=== PATIENT | female | born 1945 | race Hispanic/Latino ===

== ENCOUNTER → 2017-05-21 | Outpatient (CLI) | payer MEDICARE ==
--- NOTE | 2017-05-21 13:41 | Diagnostic Imaging Report ---
PROCEDURE:RIBS UNILAT W/CXR TECHNIQUE: INDICATION: COMPARISON:None. FINDINGS: Lungs are well-inflated. Linear opacities in the lung bases, likely atelectasis or scarring. No pleural effusions or pneumothorax. Cardiomediastinal silhouette is unremarkable. No pleural effusions or pneumothorax. No free air under the diaphragm. Soft tissues are unremarkable. Minimally displaced left 6th rib fracture anterolaterally. CONCLUSION: Minimally displaced left 6th rib fracture anterolaterally. Dictated by: Dimitri Lopez M.D. on 05/21/2017 at 13:42 Electronically approved by: Dimitri Lopez M.D. on 05/21/2017 at 13:42
== END ==
LOC: RAD 09:32
PROVIDERS: ATTEND Family Medicine
DX: R07.89 Other chest pain (principal)
CPT/HCPCS: 71101

== ENCOUNTER 2019-08-21 19:41 | Emergency (ER) | payer MEDICARE, OTHER ==
[~2019-08-21] VITALS: Ht 157.5 cm; Wt 127.0 kg
[2019-08-21] MEDS ORDERED: SODIUM CHLORIDE 0.9% 1000ML 1,000 ML IV STA (20:02)
[2019-08-21] MEDS ORDERED: FAMOTIDINE 20 MG/2 ML VIAL IV ONE ×2 (20:15→20:37)
[2019-08-21] MEDS ORDERED: ONDANSETRON HCL INJ 2MG/ML 2ML 2 MG/ML VIAL IV ONE (20:15)
[2019-08-21] MEDS ORDERED: MAALOX MAXIMUM355 ML PO (20:16)
[2019-08-21] MEDS ORDERED: ZOFRAN4 MG SL (20:16)
[2019-08-21] MEDS ORDERED: OMEPRAZOLE40 MG PO (20:16)
--- NOTE | 2019-08-21 20:16 | Emergency Department Note ---
History of Present Illnes History of Present Illness Chief Complaint: Abdominal Complaints History of Present Illness This is a 73 year old female obese c/o epigatric pain for 1 week no n/v/d no f/c. Just want to "check it out". Arrival Mode: Car History limited by: language barrier Director Of Business Continuity Required: Yes (Jalen her nurse speaks American with her) Severity: mild Onset quality: sudden Duration (how long): week(s) (1) Chronicity: new Relieving factors: none Exacerbating factors: none Associated symptoms: Reports denies other symptoms Treatments prior to arrival: none Previous service: medications given Past Medical/Family History Physician Review I have reviewed the patient's past medical and family history. Any updates have been documented here. Past Medical History Recent Fever: No Clinical Suspicion of Infectio: No New/Unexplained Change in Ment: No Social History Smoking Cessation: Never Smoker Counseling Performed: No Any Illegal Drug Use: No Family History Family history of heart diseas: No Other Any Pre-Existing Lines (PICC,: No Is patient up to date on immun: No Review of Systems Review of Systems Constitutional: Reports no symptoms EENTM: Reports no symptoms Cardiovascular: Reports no symptoms Respiratory: Reports no symptoms Gastrointestinal: Reports as per HPI, Reports abdominal pain Genitourinary: Reports no symptoms Musculoskeletal: Reports no symptoms Integumentary: Reports no symptoms Neurological: Reports no symptoms Psychological: Reports no symptoms Endocrine: Reports no symptoms Hematological/Lymphatic: Reports no symptoms Review of other systems: All other systems negative Physical Exam Related Data Allergies: Coded Allergies: No Known Allergies (Unverified , 08/21/19) Vital signs reviewed: Yes Physical Exam CONSTITUTIONAL Constitutional: Present well-developed, Present well-nourished, Present obese HENT HENT: Present normocephalic, Present atraumatic, Present oropharynx clear/moist, Present nose normal HENT L/R: Present left ext ear normal, Present right ext ear normal EYES Eyes: Reports PERRL, Reports conjunctivae normal NECK Neck: Present ROM normal PULMONARY Pulmonary: Present effort normal, Present breath sounds normal CARDIOVASCULAR Cardiovascular: Present regular rhythm, Present heart sounds normal, Present capillary refill normal, Present normal rate GASTROINTESTINAL Abdominal: Present soft, Present bowel sounds normal, Present tender (mild tender) GENITOURINARY Genitourinary: Present exam deferred SKIN Skin: Present warm, Present dry MUSCULOSKELETAL Musculoskeletal: Present ROM normal NEUROLOGICAL Neurological: Present alert, Present oriented x 3, Present no gross motor or sensory deficits PSYCHOLOGICAL Psychological: Present mood/affect normal, Present judgement normal Results Laboratory Lab results reviewed: Yes Imaging Imaging Comments c/w COVID pneumonia Diagnostics Tests Diagnostic test(s) reviewed: Yes Assessment & Plan Medical Decision Making MDM gastritis, pancreatitis Reassessment Reassessment time: 22:37 Reassessment VSS, taking PO well sat 96 % RA Assessment & Plan Final Impression: (1) COVID-19 virus infection (2) Gastritis Depart Disposition: HOME, SELF-[facility] Meds Active Scripts Azithromycin (Z-HUMA) 250 Mg Tablet, 1 PKG PO DIRECTED, #1 PKG 0 Refills Prov:ABDOULAYE OLVERA MD 08/21/19 Dexamethasone (DEXAMETHASONE) 6 Mg Tablet, 1 TAB PO DAILY, #7 Prov:ABDOULAYE OLVERA MD 08/21/19 Mag Hydrox/Al Hydrox/Simeth (MAALOX MAXIMUM STRENGTH SUSP) 355 Ml Oral.susp, 30 ML PO Q4H PRN for ABDOMINAL PAIN, #120 ML Prov:ABDOULAYE OLVERA MD 08/21/19 Omeprazole (OMEPRAZOLE) 40 Mg Capsule.dr, 1 TAB PO DAILY, #30 Prov:ABDOULAYE OLVERA MD 08/21/19 Discontinued Scripts Ondansetron Hcl* (ZOFRAN*) 4 Mg Tablet, 4 MG SL Q6H PRN for NAUSEA, #14 MG 0 Refills Prov:ABDOULAYE OLVERA MD 08/21/19 Medications in the ED Ondansetron HCl 4 mg ONCE ONCE IV ; Start 08/21/19 at 20:15; Stop 08/21/19 at 20:16; Status UNV Famotidine 20 mg ONCE ONCE IV ; Start 08/21/19 at 20:15; Stop 08/21/19 at 20:16; Status UNV Sodium Chloride 1,000 ml @ 0 mls/hr Q0M STAT IV ; Start 08/21/19 at 20:02; Stop 08/21/19 at 20:04; Status DC Physician Attestation Provider Attestation normal saturation, no sob, can be d/c safely ABDOULAYE OLVERA MD Aug 21, 2019 20:16
[2019-08-21] MEDS ORDERED: ONDANSETRON HCL INJ 2MG/ML 2ML 2 MG/ML VIAL ONE (20:36)
[2019-08-21] MEDS ORDERED: SODIUM CHLORIDE 0.9% 1000ML 1,000 ML ONE (20:37)
[2019-08-21] MEDS ORDERED: SODIUM CHLORIDE 0.9% 50ML 50 ML ONE (21:22)
[2019-08-21] MEDS ORDERED: IOPAMIDOL 370 MG/ML 200 ML INFUS..BTL INJ ONE (21:23)
[2019-08-21] MEDS ORDERED: DEXAMETHASONE6 MG PO (22:36)
[2019-08-21] MEDS ORDERED: AZITHROMYCIN250 MG PO (22:36)
--- NOTE | 2019-08-21 22:36 | Diagnostic Imaging Report ---
EXAM: CT Abdomen and Pelvis WITH contrast INDICATION: Mid abdominal pain COMPARISON: None. TECHNIQUE: Abdomen and pelvis were scanned utilizing a multidetector helical scanner from the lung base to the pubic symphysis after administration of IV contrast. Coronal and sagittal reformations were obtained. Routine protocol was performed. Scan was performed when during portal venous phase. IV CONTRAST: 100 mL of Isovue 370 ORAL CONTRAST: None COMPLICATIONS: None RADIATION DOSE: Total DLP: 799 mGy*cm Estimated effective dose: (DLP x 0.015 x size factor) mSv CTDIvol has been reviewed. It is below the limits set by the Radiation Protocol Committee (RPC). Dose modulation, iterative reconstruction, and/or weight based adjustment of the mA/kV was utilized to reduce the radiation dose to as low as reasonably achievable. FINDINGS: LINES and TUBES: None. LOWER THORAX: Multifocal ground glass opacities in the bilateral lower lungs. HEPATOBILIARY: No focal hepatic lesions. No biliary ductal dilation. GALLBLADDER: No radio-opaque stones or sludge. No wall thickening. SPLEEN: No splenomegaly. PANCREAS: There is fatty infiltration of the pancreas. ADRENALS: No adrenal nodules KIDNEYS/URETERS: Kidneys enhance symmetrically. No hydronephrosis. No cystic or solid mass lesions. No stones. GI TRACT: No abnormal distention, wall thickening, or evidence of bowel obstruction. Appendix is normal. PELVIC ORGANS/BLADDER: Unremarkable. LYMPH NODES: No lymphadenopathy. VESSELS: Unremarkable. PERITONEUM / RETROPERITONEUM: No free air or fluid. BONES: Unremarkable. SOFT TISSUES: Benign calcified granuloma in the left gluteal subcutaneous adipose. IMPRESSION: 1. Multifocal pneumonia, likely viral. 2. Pancreatic steatosis. ER provider was notified of finding 1 at the time of this dictation Signed by: Abdullahi Sagastume DO on 08/21/2019 10:32 PM
== END 2019-08-21 23:00 | disposition home or self-care (01) ==
LOC: FSED 20:02
DX: U07.1 COVID-19 (principal); K29.70 Gastritis, unspecified, without bleeding
CPT/HCPCS: 74177; 80053; 85025; 87635; 99283; J2405; J7030; Q9967; U0002

== ENCOUNTER → 2020-09-01 | Outpatient (CLI) | payer MEDICARE, OTHER ==
[~2020-09-01] MED LIST: AZITHROMYCIN250 MG PO; DEXAMETHASONE6 MG PO; MAALOX MAXIMUM355 ML PO; OMEPRAZOLE40 MG PO; ZOFRAN4 MG SL
== END ==
LOC: MAMMO 10:01
PROVIDERS: ATTEND Family Medicine
DX: Z12.31 Encounter for screening mammogram for malignant neoplasm of breast (principal); Z13.820 Encounter for screening for osteoporosis
CPT/HCPCS: 77067; 77080

== ENCOUNTER → 2021-05-25 | Outpatient (CLI) | payer MEDICARE, OTHER | LOC: RAD 11:04 | PROVIDERS: ATTEND Family Medicine | DX: M25.562 Pain in left knee (principal); M17.12 Unilateral primary osteoarthritis, left knee ==

== ENCOUNTER → 2021-09-12 | Outpatient (CLI) | payer MEDICARE, OTHER | LOC: MAMMO 09:27 | PROVIDERS: ATTEND Family Medicine | DX: Z12.31 Encounter for screening mammogram for malignant neoplasm of breast (principal) | CPT/HCPCS: 77067 ==

== ENCOUNTER → 2022-03-15 | Outpatient (CLI) | payer MEDICARE, OTHER | LOC: MRI 09:15 | PROVIDERS: ATTEND Family Medicine | DX: M54.16 Radiculopathy, lumbar region (principal) | CPT/HCPCS: 72148 ==